=== PATIENT | male | born 1960 | race Hispanic/Latino ===

== ENCOUNTER 2021-06-25 23:23 | Emergency (ER) | payer MEDICAID ==
[2021-06-25] MEDS ORDERED: dilTIAZem 25 MG/5 ML INJ IV ONE (23:44)
--- NOTE | 2021-06-25 23:51 | Emergency Department Report ---
ED Chest Pain HPI - General Stated Complaint: CHEST PAIN PUI?: No Time Seen by Provider: 06/25/21 23:36 Source: patient, EMS Mode of arrival: Stretcher Limitations: Language Barrier - History of Present Illness Initial Comments: CC: chest pain, shortness of breath HPI: This is a 61 yo male with hx of HTN, CHF, inguinal hernia and polysubstance abuse who presents with chest pain and shortness of breath for 3 weeks. He has intermittent chest squeezing sensation. Has productive cough. Recently seen at outside hospital. He was diagnosed with a "very weak heart". He denies fever, chills, diarrhea, abdominal pain. He has constipation. He endorses tobacco use, daily alcohol use. He recently used cocaine and methamphetamine one week ago. Family history of stroke Heart disease cancer Patient arrived via EMS. EMS cardiac tracing revealed atrial fibrillation RVR. HR reported to be 120-170 bpm according to EMS. I reviewed EKG obtained per EMS my interpretation: Atrial fibrillation RVR ventricular rate 150 bpm right axis deviation no ST elevation nonspecific T wave pattern MD Complaint: chest pain -: Gradual, week(s) (3 weeks) Onset: during rest Pain Location: substernal Severity: moderate Severity scale (0 -10): 7 Quality: squeezing Consistency: intermittent Improves With: nothing Worsens With: nothing Context: recent illness (Recent diagnosis of "weak heart" at outside hospital) Other Symptoms: cough, other (Shortness of breath) Treatments Prior to Arrival: aspirin (324 mg of aspirin per EMS) - Related Data Allergies Allergy/AdvReac Type Severity Reaction Status Date / Time No Known Allergies Allergy Verified 06/26/21 00:16 Heart Score - HEART Score History: Moderately suspicious EKG: Non-specific Age: 45-65 Risk factors: 1-2 risk factors Troponin: < normal limit HEART Score: 4 - EKG Read Time Time EKG Completed: 23:56 EKG Read Time: 23:56 - Critical Actions Critical Actions: 4-6 pts:12-16.6% risk of adverse cardiac event. Should be admitted ED Review of Systems ROS: Stated complaint: CHEST PAIN Other details as noted in HPI Comment: All other systems reviewed and negative Constitutional: denies: fever, malaise Respiratory: cough, shortness of breath Cardiovascular: chest pain Gastrointestinal: constipation. denies: abdominal pain, nausea, vomiting, diarrhea Musculoskeletal: denies: back pain Neurological: denies: headache ED Past Medical Hx - Past Medical History Previous Medical History?: Yes Hx Hypertension: Yes Hx Congestive Heart Failure: Yes Additional medical history: Inguinal hernia - Family History Family history: CAD/[place], cancer, vascular disease, other (Family history of CVA) - Social History Smoking Status: Current Every Day Smoker Substance Use Type: Alcohol, Cocaine, Methamphetamines ED Physical Exam - General General appearance: alert, in no apparent distress, other (Disheveled in appearance otherwise cooperative no acute distress) - Head Head exam: Present: atraumatic, normocephalic - Eye Eye exam: Present: normal appearance - ENT ENT exam: Present: mucous membranes moist, other (Edentulous) - Neck Neck exam: Present: normal inspection, full ROM - Respiratory Respiratory exam: Present: normal lung sounds bilaterally. Absent: respiratory distress, wheezes, rales, rhonchi - Cardiovascular Cardiovascular Exam: Present: tachycardia, irregular rhythm, normal heart sounds. Absent: systolic murmur, diastolic murmur, rubs, gallop - GI/Abdominal GI/Abdominal exam: Present: soft, normal bowel sounds. Absent: distended, tenderness, guarding, rebound - Rectal Rectal exam: Present: deferred - Extremities Exam Extremities exam: Present: normal inspection - Neurological Exam Neurological exam: Present: alert, oriented X3 - Psychiatric Psychiatric exam: Present: normal affect, normal mood - Skin Skin exam: Present: warm, dry, intact, normal color. Absent: rash ED Course Vital Signs 06/26/21 06/26/21 06/26/21 00:11 00:14 00:22 Temperature 98.6 F Pulse Rate 133 H 147 H Respiratory 17 Rate Blood Pressure 122/89 Blood Pressure 122/89 [Left] O2 Sat by Pulse 98 99 Oximetry 06/26/21 01:42 Temperature Pulse Rate 115 H Respiratory 18 Rate Blood Pressure Blood Pressure 112/72 [Left] O2 Sat by Pulse 100 Oximetry - Reevaluation(s) Reevaluation #1: 06/26/21 01:04 Heart rate 106 to 111 bpm after first diltiazem bolus. Second diltiazem bolus and infusion ordered. ED Medical Decision Making - Lab Data Result diagrams: 06/25/21 23:45 06/25/21 23:45 Laboratory Results - last 24 hr 06/25/21 06/25/21 06/25/21 23:45 23:45 23:49 WBC 8.2 RBC 4.26 Hgb 13.0 Hct 40.0 MCV 94 MCH 31 MCHC 33 RDW 14.2 Plt Count 260 Lymph % (Auto) 23.0 [place] % (Auto) 6.8 Eos % (Auto) 4.1 Baso % (Auto) 1.2 Lymph # (Auto) 1.9 [place] # (Auto) 0.6 Eos # (Auto) 0.3 Baso # (Auto) 0.1 Seg Neutrophils % 64.9 Seg Neutrophils # 5.3 Sodium 138 Potassium 4.5 Chloride 100.4 Carbon Dioxide 27 Anion Gap 15 BUN 12 Creatinine 1.0 Estimated GFR > 60 BUN/Creatinine Ratio 12 Glucose 86 Calcium 8.6 Troponin T < 0.010 NT-Pro-B Natriuret Pep 3936 H - EKG Data -: EKG Interpreted by Me - EKG Data 06/26/21 00:03 EKG obtained 2356 EKG interpreted by me Atrial fibrillation rapid ventricular rate 145 bpm right axis deviation no ST elevation nonspecific T wave pattern - Radiology Data Radiology results: report reviewed Patient Name: LIBIA FLOWER Gender: Male Date of : 1960 Referring Provider: DARYN ARROYO Organization: [facility] Accession Number: [id number] Requested Date: June 25, 2021 23:36 Report Status: Final Requested Procedure: 1 Procedure Description: XR chest 1V ap Modality: XR Findings Reporting MD: Dominga Palacio Dictation Time: June 25, 2021 22:59 Cmm Technician: Not available Manager Office Date: CHEST 1 VIEW 06/25/2021 10:56 PM INDICATION / CLINICAL INFORMATION: Chest Pain. COMPARISON: None available. FINDINGS: SUPPORT DEVICES: None. HEART / MEDIASTINUM: Heart is mildly enlarged. LUNGS / PLEURA: Mild to moderate interstitial pulmonary edema. No pneumothorax. ADDITIONAL FINDINGS: No significant additional findings. IMPRESSION: 1. Mild cardiomegaly with pulmonary edema. Signer Name: Dominga Palacio MD Signed: 06/25/2021 10:59 PM Workstation Name: [email or web address] - Medical Decision Making 1. Acute coronary syndrome: Heart score 4 patient has had intermittent chest pain shortness of breath over the past 3 weeks. Chest pain resolved with rate control. First troponin negative. Patient received aspirin via EMS. 2. New onset atrial fibrillation with RVR: Patient rate controlled will diltiazem boluses and infusion. 3. Acute systolic heart failure: Patient is at risk for coronary artery disease however patient does have history of polysubstance abuse which would cause nonischemic cardiomyopathy. Patient given IV furosemide for diuresis. Patient has been normotensive. BNP elevated Ultimately Mr. Flower decided to leave AGAINST MEDICAL ADVICE. He did not want to be admitted to the hospital. He understands the risk of sudden or stroke. He understands the risk of worsening health. Patient does have decision-making capacity. I encouraged him to return to the ER for further treatment evaluation. I have referred Mr. Flower to wood cabinet finisher and general surgeon. Critical Care Time: Yes Critical care time in (mins) excluding proc time.: 40 Critical care attestation.: If time is entered above; I have spent that time in minutes in the direct care of this critically ill patient, excluding procedure time. 40 minutes of critical care time excluding procedures were used in the care of the patient. I came immediately to the bedside upon patient's arrival. I obtained history from EMS at the bedside. I discussed treatment plan with the nursing team members. I reviewed electronic record. I was concerned for arrhythmia leading to cardiovascular collapse. Patient required multiple interventions and reassessments. ED Disposition Clinical Impression: New onset atrial fibrillation, Atrial fibrillation with rapid ventricular response, Acute coronary syndrome, Acute systolic heart failure, Tobacco dependence, Polysubstance abuse Disposition: DC-07 LEFT AGAINST MED ADVICE Is pt being admited?: No Does the pt Need Aspirin: No Condition: Stable Instructions: Inguinal Hernia, Adult, [id number], Atrial Fibrillation, [id number] Referrals: JADIEL REBOLLAR MD [Staff Physician] - 3-5 Days JENNY DOUGHERTY DO [Staff Physician] - 3-5 Days Forms: AMA Form
--- NOTE | 2021-06-26 00:04 | XRay Report ---
CHEST 1 VIEW 06/25/2021 10:56 PM INDICATION / CLINICAL INFORMATION: Chest Pain. COMPARISON: None available. FINDINGS: SUPPORT DEVICES: None. HEART / MEDIASTINUM: Heart is mildly enlarged. LUNGS / PLEURA: Mild to moderate interstitial pulmonary edema. No pneumothorax. ADDITIONAL FINDINGS: No significant additional findings. IMPRESSION: 1. Mild cardiomegaly with pulmonary edema. Signer Name: Dominga Palacio MD Signed: 06/25/2021 11:59 PM Workstation Name: [id number]
[2021-06-26 00:44] LABS: Basophils # (Auto) 0.1 K/mm3 (0.0-0.1); Basophils % (Auto) 1.2 % (0.0-1.8); Eosinophils # (Auto) 0.3 K/mm3 (0.0-0.4); Eosinophils % (Auto) 4.1 % (0.0-4.3); Lymphocytes # (Auto) 1.9 K/mm3 (1.2-5.4); Mean Corpuscular HGB Conc 33 % (32-34); Mean Corpuscular Volume 94 fl (84-94); Monocytes # (Auto) 0.6 K/mm3 (0.0-0.8); Monocytes % (Auto) 6.8 % (0.0-7.3); Platelet Count 260 K/mm3 (140-440); Red Blood Count 4.26 M/mm3 (3.65-5.03); Red Cell Distribution Width 14.2 % (13.2-15.2)
[2021-06-26 00:52] LABS: BUN/Creatinine Ratio 12; Blood Urea Nitrogen 12 mg/dL (9-20); Calcium 8.6 mg/dL (8.4-10.2); Hemolysis Index 4
[2021-06-26] MEDS ORDERED: dilTIAZem 25 MG/5 ML INJ IV ONE (01:09)
[2021-06-26 01:42] VITALS: BP 112/72
[2021-06-26] MEDS ORDERED: dilTIAZem/D5W 100 MG/100 ML BAG IV SCH (02:00)
--- NOTE | 2021-06-28 10:36 | Electrocardiograph Report ---
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
== END 2021-06-26 01:58 | disposition left against medical advice (07) ==
LOC: ED 23:23
DX: I49.01 Ventricular fibrillation (principal); I24.9 Acute ischemic heart disease, unspecified; I50.21 Acute systolic (congestive) heart failure; F17.200 Nicotine dependence, unspecified, uncomplicated; F19.10 Other psychoactive substance abuse, uncomplicated; I11.0 Hypertensive heart disease with heart failure; I50.9 Heart failure, unspecified
CPT/HCPCS: 36415; 71045; 80048; 83880; 84484; 85025; 93005; 96374; 99284

== ENCOUNTER 2021-07-07 19:01 | Emergency (ER) | payer MEDICAID ==
[2021-07-07] MEDS ORDERED: ASPIRIN 325 MG TAB PO ONE (19:43)
[2021-07-07] MEDS ORDERED: dilTIAZem 25 MG/5 ML INJ IV ONE ×2 (20:06→20:24)
--- NOTE | 2021-07-07 20:09 | XRay Report ---
CHEST 1 VIEW INDICATION: chest pain. COMPARISON: 06/25/2021 FINDINGS: Support devices: None. Heart: Enlarged, unchanged. Lungs/Pleura: Retrocardiac opacity is likely atelectatic given the enlarged cardiac silhouette. Lungs otherwise clear. No significant effusion, no pneumothorax. IMPRESSION: 1. No acute findings. Presumed atelectasis in the retrocardiac left lung base. Signer Name: Stiven Mcleod MD Signed: 07/07/2021 8:05 PM Workstation Name: [id number]
[2021-07-07 20:30] LABS: Basophils # (Auto) 0.1 K/mm3 (0.0-0.1); Basophils % (Auto) 1.2 % (0.0-1.8); Eosinophils # (Auto) 0.3 K/mm3 (0.0-0.4); Eosinophils % (Auto) 3.3 % (0.0-4.3); Hematocrit 38.1 % (35.5-45.6); Hemoglobin 12.7 gm/dl (11.8-15.2); Lymphocytes # (Auto) 1.8 K/mm3 (1.2-5.4); Lymphocytes % (Auto) 23.4 % (13.4-35.0); Mean Corpuscular HGB Conc 33 % (32-34); Mean Corpuscular Volume 93 fl (84-94); Monocytes # (Auto) 0.6 K/mm3 (0.0-0.8); Monocytes % (Auto) 8.1 % (0.0-7.3); Platelet Count 223 K/mm3 (140-440); Red Cell Distribution Width 14.1 % (13.2-15.2)
[2021-07-07 20:50] LABS: Alanine Aminotransferase 10 units/L (7-56); Albumin 3.3 g/dL (3.9-5); Blood Urea Nitrogen 14 mg/dL (9-20); Calcium 9.1 mg/dL (8.4-10.2); Hemolysis Index 9
[2021-07-07 20:57] LABS: BUN/Creatinine Ratio 20
[2021-07-07] MEDS ORDERED: METOPROLOL TARTRATE 5 MG/5 ML INJ IV ONE (21:55)
--- NOTE | 2021-07-07 21:55 | Emergency Department Report ---
ED General Adult HPI - General Chief complaint: Chest Pain Stated complaint: CHEST PAIN Time Seen by Provider: 07/07/21 19:30 Source: patient, EMS Mode of arrival: Stretcher Limitations: No Limitations - History of Present Illness Initial comments: The patient presents to the emergency department with a chief complaint of chest pain has been present for the last couple of days. Patient scribes the chest pain is pressure-like in nature. Patient also complains of shortness of breath or heart palpitations. Patient denies have any history of atrial fibrillation. Patient states when he was in longterm he used to take medications for his heart but has not taken medication since leaving longterm. Patient denies abdominal pain or headache. -: unknown Location: chest Radiation: non-radiation Severity scale (0 -10): 5 Quality: dull Consistency: constant Improves with: none Worsens with: none Associated Symptoms: denies other symptoms Treatments Prior to Arrival: none - Related Data Allergies Allergy/AdvReac Type Severity Reaction Status Date / Time No Known Allergies Allergy Verified 07/07/21 19:39 ED Review of Systems ROS: Stated complaint: CHEST PAIN Other details as noted in HPI Comment: All other systems reviewed and negative Constitutional: denies: chills, fever Eyes: denies: eye pain, eye discharge, vision change ENT: denies: ear pain, throat pain Respiratory: denies: cough, shortness of breath, wheezing Cardiovascular: chest pain. denies: palpitations Endocrine: no symptoms reported Gastrointestinal: denies: abdominal pain, nausea, diarrhea Genitourinary: denies: urgency, dysuria Musculoskeletal: denies: back pain, joint swelling, arthralgia Skin: denies: rash, lesions Neurological: denies: headache, weakness, paresthesias Psychiatric: denies: anxiety, depression Hematological/Lymphatic: denies: easy bleeding, easy bruising ED Past Medical Hx - Past Medical History Previous Medical History?: Yes Hx Hypertension: Yes Hx Congestive Heart Failure: Yes Additional medical history: AFIB, High cholesterol, Inguinal hernia - Surgical History Past Surgical History?: No - Social History Smoking Status: Current Every Day Smoker Substance Use Type: Alcohol ED Physical Exam - General Limitations: No Limitations General appearance: alert, in no apparent distress - Head Head exam: Present: atraumatic, normocephalic - Eye Eye exam: Present: normal appearance, PERRL, EOMI - ENT ENT exam: Present: mucous membranes moist - Neck Neck exam: Present: normal inspection - Respiratory Respiratory exam: Present: normal lung sounds bilaterally. Absent: respiratory distress - Cardiovascular Cardiovascular Exam: Present: normal rhythm, tachycardia, irregular rhythm. Absent: systolic murmur, diastolic murmur, rubs, gallop - GI/Abdominal GI/Abdominal exam: Present: soft, normal bowel sounds. Absent: distended, tenderness - Rectal Rectal exam: Present: deferred - Extremities Exam Extremities exam: Present: normal inspection - Back Exam Back exam: Present: normal inspection - Neurological Exam Neurological exam: Present: alert, oriented X3, CN II-XII intact. Absent: motor sensory deficit - Psychiatric Psychiatric exam: Present: normal affect, normal mood - Skin Skin exam: Present: warm, dry, intact, normal color. Absent: rash ED Course Vital Signs 07/07/21 07/07/21 07/07/21 19:30 19:45 20:01 Temperature 98.1 F Pulse Rate 139 H 127 H 150 H Respiratory 18 21 23 Rate Blood Pressure 124/94 118/95 Blood Pressure 116/96 [Left] O2 Sat by Pulse 100 100 99 Oximetry 07/07/21 07/07/21 07/07/21 20:14 20:15 20:28 Temperature Pulse Rate 135 H 135 H 126 H Respiratory 21 Rate Blood Pressure 112/83 112/83 110/87 Blood Pressure [Left] O2 Sat by Pulse 100 Oximetry 07/07/21 07/07/21 07/07/21 20:31 20:45 21:01 Temperature Pulse Rate 119 H 100 H 111 H Respiratory 23 23 19 Rate Blood Pressure 110/87 111/77 Blood Pressure [Left] O2 Sat by Pulse 99 98 97 Oximetry 07/07/21 07/07/21 07/07/21 21:15 21:31 21:45 Temperature Pulse Rate 109 H 115 H 140 H Respiratory 18 20 21 Rate Blood Pressure 96/70 99/68 102/78 Blood Pressure [Left] O2 Sat by Pulse 95 96 97 Oximetry 07/07/21 07/07/21 07/07/21 22:01 22:15 22:16 Temperature Pulse Rate 123 H 120 H 127 H Respiratory 26 H 19 Rate Blood Pressure 111/81 120/78 120/78 Blood Pressure [Left] O2 Sat by Pulse 96 97 Oximetry 07/07/21 22:31 Temperature Pulse Rate 111 H Respiratory 20 Rate Blood Pressure 117/89 Blood Pressure [Left] O2 Sat by Pulse Oximetry ED Medical Decision Making - Lab Data Result diagrams: 07/07/21 19:51 07/07/21 19:51 Lab Results 07/07/21 07/07/21 07/07/21 Range/Units 19:51 19:51 20:16 WBC 7.5 (4.5-11.0) K/mm3 RBC 4.10 (3.65-5.03) M/mm3 Hgb 12.7 (11.8-15.2) gm/dl Hct 38.1 (35.5-45.6) % MCV 93 (84-94) fl MCH 31 (28-32) pg MCHC 33 (32-34) % RDW 14.1 (13.2-15.2) % Plt Count 223 (140-440) K/mm3 Lymph % (Auto) 23.4 (13.4-35.0) % [place] % (Auto) 8.1 H (0.0-7.3) % Eos % (Auto) 3.3 (0.0-4.3) % Baso % (Auto) 1.2 (0.0-1.8) % Lymph # (Auto) 1.8 (1.2-5.4) K/mm3 [place] # (Auto) 0.6 (0.0-0.8) K/mm3 Eos # (Auto) 0.3 (0.0-0.4) K/mm3 Baso # (Auto) 0.1 (0.0-0.1) K/mm3 Seg Neutrophils % 64.0 (40.0-70.0) % Seg Neutrophils # 4.8 (1.8-7.7) K/mm3 Sodium 138 (137-145) mmol/L Potassium 4.4 (3.6-5.0) mmol/L Chloride 102.2 (98-107) mmol/L Carbon Dioxide 26 (22-30) mmol/L Anion Gap 14 mmol/L BUN 14 (9-20) mg/dL Creatinine 0.7 L (0.8-1.3) mg/dL Estimated GFR > 60 ml/min BUN/Creatinine Ratio 20 % Glucose 90 (75-100) mg/dL Calcium 9.1 (8.4-10.2) mg/dL Magnesium (1.7-2.3) mg/dL Total Bilirubin 0.50 (0.1-1.2) mg/dL AST 15 (5-40) units/L ALT 10 (7-56) units/L Alkaline Phosphatase 79 (35-129) units/L Troponin T < 0.010 (0.00-0.029) ng/mL NT-Pro-B Natriuret Pep 4093 H (0-900) pg/mL Total Protein 6.2 L (6.3-8.2) g/dL Albumin 3.3 L (3.9-5) g/dL Albumin/Globulin Ratio 1.1 % 07/07/21 Range/Units 20:32 WBC (4.5-11.0) K/mm3 RBC (3.65-5.03) M/mm3 Hgb (11.8-15.2) gm/dl Hct (35.5-45.6) % MCV (84-94) fl MCH (28-32) pg MCHC (32-34) % RDW (13.2-15.2) % Plt Count (140-440) K/mm3 Lymph % (Auto) (13.4-35.0) % [place] % (Auto) (0.0-7.3) % Eos % (Auto) (0.0-4.3) % Baso % (Auto) (0.0-1.8) % Lymph # (Auto) (1.2-5.4) K/mm3 [place] # (Auto) (0.0-0.8) K/mm3 Eos # (Auto) (0.0-0.4) K/mm3 Baso # (Auto) (0.0-0.1) K/mm3 Seg Neutrophils % (40.0-70.0) % Seg Neutrophils # (1.8-7.7) K/mm3 Sodium (137-145) mmol/L Potassium (3.6-5.0) mmol/L Chloride (98-107) mmol/L Carbon Dioxide (22-30) mmol/L Anion Gap mmol/L BUN (9-20) mg/dL Creatinine (0.8-1.3) mg/dL Estimated GFR ml/min BUN/Creatinine Ratio % Glucose (75-100) mg/dL Calcium (8.4-10.2) mg/dL Magnesium 1.90 (1.7-2.3) mg/dL Total Bilirubin (0.1-1.2) mg/dL AST (5-40) units/L ALT (7-56) units/L Alkaline Phosphatase (35-129) units/L Troponin T (0.00-0.029) ng/mL NT-Pro-B Natriuret Pep (0-900) pg/mL Total Protein (6.3-8.2) g/dL Albumin (3.9-5) g/dL Albumin/Globulin Ratio % - EKG Data -: EKG Interpreted by Me Rate: tachycardia - EKG Data Interpretation: other (Irregularly irregular) - Radiology Data Radiology results: report reviewed - Medical Decision Making The patient was given 10 mg IV of Cardizem to to no avail this was repeated x1 with his heart rate stand at approximate 120 bpm. Patient was given 5 mg Lopressor with his heart rate decreased to 92 Instructed the patient the need for him to be admitted to the hospital for his new onset A. fib chest pain and the patient adamantly refused stating he was leaving. Discussed with the patient that this could lead to , severe illness, stroke due to his abnormal heart rhythm but the patient stated he was given the F out of here. Patient left AMA without signing paperwork. Critical Care Time: Yes Critical care time in (mins) excluding proc time.: 35 Critical care attestation.: If time is entered above; I have spent that time in minutes in the direct care of this critically ill patient, excluding procedure time. ED Disposition Clinical Impression: A-fib, Chest pain Disposition: DC-07 LEFT AGAINST MED ADVICE Is pt being admited?: No Condition: Stable Instructions: Nonspecific Chest Pain, Adult, Atrial Fibrillation Additional Instructions: Return if worse Referrals: PRIMARY CAREMD [Primary Care Provider] - 3-5 Days SAMMIE SCHUMACHER MD [Staff Physician] - 3-5 Days Forms: AMA Form
[2021-07-07 22:50] VITALS: BP 117/89
--- NOTE | 2021-07-09 09:14 | Electrocardiograph Report ---
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
== END 2021-07-07 22:35 | disposition home or self-care (01) ==
LOC: ED 19:01
DX: I48.91 Unspecified atrial fibrillation (principal); R07.9 Chest pain, unspecified; I11.0 Hypertensive heart disease with heart failure; I50.9 Heart failure, unspecified; E78.00 Pure hypercholesterolemia, unspecified; F17.200 Nicotine dependence, unspecified, uncomplicated; Z79.899 Other long term (current) drug therapy
CPT/HCPCS: 36415; 71045; 80053; 83735; 83880; 84484; 85025; 93005; 96374; 96375

== ENCOUNTER 2021-10-07 16:09 | Emergency (ER) | payer MEDICAID ==
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
[2021-10-07] MEDS ORDERED: LORazepam 2 MG/ML VIAL IV ONE ×3 (17:25→23:14)
[2021-10-07 17:28] LABS: Bilirubin,Urine NEG (Negative); Blood,Urine NEG (Negative); Color,Urine Yellow (Yellow); Mucus,Urine FEW /HPF; Protein,Urine <15 mg/dL mg/dL (Negative); Urobilinogen,Urine < 2.0 mg/dL (<2.0)
[2021-10-07 17:35] LABS: Amphetamine Screen,Urine Negative; Benzodiazepines Screen,Urine Negative; Cannabinoid Screen,Urine Negative; Cocaine Screen,Urine Negative; Methadone Screen,Urine Negative; Opiate Screen,Urine Negative
[2021-10-07 17:38] LABS: Basophils # (Auto) 0.1 K/mm3 (0.0-0.1); Basophils % (Auto) 1.5 % (0.0-1.8); Eosinophils # (Auto) 0.2 K/mm3 (0.0-0.4); Eosinophils % (Auto) 2.9 % (0.0-4.3); Hematocrit 44.6 % (35.5-45.6); Hemoglobin 14.7 gm/dl (11.8-15.2); Lymphocytes # (Auto) 2.5 K/mm3 (1.2-5.4); Lymphocytes % (Auto) 40.1 % (13.4-35.0); Mean Corpuscular HGB Conc 33 % (32-34); Mean Corpuscular Volume 92 fl (84-94); Monocytes # (Auto) 0.5 K/mm3 (0.0-0.8); Monocytes % (Auto) 7.7 % (0.0-7.3); Platelet Count 302 K/mm3 (140-440); Red Blood Count 4.85 M/mm3 (3.65-5.03); Red Cell Distribution Width 19.9 % (13.2-15.2)
[2021-10-07 17:42] LABS: Alanine Aminotransferase 21 units/L (7-56); Blood Urea Nitrogen 13 mg/dL (9-20); Calcium 8.9 mg/dL (8.4-10.2); Hemolysis Index 25
[2021-10-07 17:43] LABS: BUN/Creatinine Ratio 22
[2021-10-07 17:58] LABS: INR 0.88 (0.87-1.13)
[2021-10-07 17:59] LABS: Partial Thromboplastin Time 28.3 Sec. (24.2-36.6)
[2021-10-07] MEDS ORDERED: diphenhydrAMINE 50 MG/ML VIAL IV ONE (22:18)
[2021-10-07] MEDS ORDERED: HALOPERIDOL LACTATE 5 MG/1 ML INJ IV ONE (22:19)
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
[2021-10-08 05:07] VITALS: BP 137/92
== END 2021-10-08 06:20 | disposition home or self-care (01) ==
LOC: ED 16:09
DX: S00.81XA Abrasion of other part of head, initial encounter (principal); F10.129 Alcohol abuse with intoxication, unspecified; I11.0 Hypertensive heart disease with heart failure; I50.9 Heart failure, unspecified; E78.00 Pure hypercholesterolemia, unspecified; F17.200 Nicotine dependence, unspecified, uncomplicated; Z79.899 Other long term (current) drug therapy; Y04.8XXA Assault by other bodily force, initial encounter; Y93.89 Activity, other specified; Y92.89 Other specified places as the place of occurrence of the external cause; Y99.8 Other external cause status; Y90.9 Presence of alcohol in blood, level not specified
CPT/HCPCS: 36415; 70450; 80053; 80307; 81001; 85025; 85610; 85730; 96374; 96375; 96376; 99285; J1200; J1630; J2060; 80320; G0480

== ENCOUNTER 2022-03-19 14:09 | Emergency (ER) | payer MEDICAID ==
[2022-03-19] MEDS ORDERED: THIAMINE 100 MG, FOLIC ACID 1 MG, MULTIPLE VITAMIN INJ, ADULT 10 ML in SODIUM CHLORIDE ... IV ONE (16:05)
--- NOTE | 2022-03-19 16:08 | Emergency Department Report ---
ED Alcohol HPI - General Chief Complaint: Alcohol Stated Complaint: ALCOHOL Time Seen by Provider: 03/19/22 15:50 Source: patient, family Mode of arrival: Ambulatory Limitations: No Limitations - History of Present Illness Initial Comments: 62-year-old male with a past medical history of CHF, hypertension, atrial fibrillation, and alcohol abuse presents to the hospital acutely intoxicated requesting alcohol detox. Patient is drowsy but arousable and obviously intoxicated with slurred speech. He does endorse a history of alcohol withdrawal tremors but denies history of alcohol withdrawal seizures. Last drink was prior to arrival - Related Data Allergies Allergy/AdvReac Type Severity Reaction Status Date / Time No Known Allergies Allergy Verified 03/19/22 16:40 ED Review of Systems ROS: Stated complaint: ALCOHOL Other details as noted in HPI Comment: All other systems reviewed and negative ED Past Medical Hx - Past Medical History Previous Medical History?: Yes Hx Hypertension: Yes Hx Congestive Heart Failure: Yes Additional medical history: AFIB, High cholesterol, Inguinal hernia, Alcohol abuse - Surgical History Past Surgical History?: No - Social History Smoking Status: Current Every Day Smoker Substance Use Type: Alcohol ED Physical Exam - General Limitations: No Limitations - Other Other exam information: General: No acute distress Head: Atraumatic Eyes: normal appearance ENT: Moist mucous membranes Neck: Normal appearance, no midline tenderness Chest: Clear to auscultation bilaterally CV: Mild tachycardia irregular rate Abdomen: Soft, normal bowel sounds, nontender, nondistended, no rebound or guarding Back: Normal inspection Extremity: Normal inspection, full range of motion Neuro: Lethargic, acute intoxication, mild slurred speech, 5/5 upper lower ex tremity strength, sensation grossly intact Skin: No rash ED Course Vital Signs 03/19/22 03/19/22 14:33 16:41 Temperature 98.5 F 98.3 F Pulse Rate 106 H 110 H Respiratory 19 18 Rate Blood Pressure 134/91 134/113 [Right] O2 Sat by Pulse 96 98 Oximetry ED Medical Decision Making - Lab Data Result diagrams: 03/19/22 16:47 03/19/22 16:47 Lab Results 03/19/22 03/19/22 03/19/22 Range/Units 16:47 16:47 16:47 WBC 4.1 L (4.5-11.0) K/mm3 RBC 4.55 (3.65-5.03) M/mm3 Hgb 15.4 H (11.8-15.2) gm/dl Hct 44.6 (35.5-45.6) % MCV 98 H (84-94) fl MCH 34 H (28-32) pg MCHC 35 H (32-34) % RDW 15.3 H (13.2-15.2) % Plt Count 164 (140-440) K/mm3 Lymph % (Auto) 41.8 H (13.4-35.0) % [place] % (Auto) 9.3 H (0.0-7.3) % Eos % (Auto) 1.8 (0.0-4.3) % Baso % (Auto) 1.2 (0.0-1.8) % Lymph # (Auto) 1.7 (1.2-5.4) K/mm3 [place] # (Auto) 0.4 (0.0-0.8) K/mm3 Eos # (Auto) 0.1 (0.0-0.4) K/mm3 Baso # (Auto) 0.1 (0.0-0.1) K/mm3 Seg Neutrophils % 45.9 (40.0-70.0) % Seg Neutrophils # 1.9 (1.8-7.7) K/mm3 PT (12.2-14.9) Sec. INR (0.87-1.13) APTT (24.2-36.6) Sec. Sodium 142 (137-145) mmol/L Potassium 3.9 (3.6-5.0) mmol/L Chloride 103.9 (98-107) mmol/L Carbon Dioxide 21 L (22-30) mmol/L Anion Gap 21 mmol/L BUN 14 (9-20) mg/dL Creatinine 0.7 L (0.8-1.3) mg/dL Estimated GFR > 60 ml/min BUN/Creatinine Ratio 20 % Glucose 89 (75-100) mg/dL Calcium 9.0 (8.4-10.2) mg/dL Magnesium 1.90 (1.7-2.3) mg/dL Total Bilirubin 0.50 (0.1-1.2) mg/dL AST 198 H (5-40) units/L ALT 122 H (7-56) units/L Alkaline Phosphatase 90 (35-129) units/L Total Protein 6.5 (6.3-8.2) g/dL Albumin 4.1 (3.9-5) g/dL Albumin/Globulin Ratio 1.7 % Salicylates < 0.3 L (2.8-20.0) mg/dL Acetaminophen (10.0-30.0) ug/mL Plasma/Serum Alcohol (0-0.07) % 03/19/22 03/19/22 03/19/22 Range/Units 16:47 16:47 16:47 WBC (4.5-11.0) K/mm3 RBC (3.65-5.03) M/mm3 Hgb (11.8-15.2) gm/dl Hct (35.5-45.6) % MCV (84-94) fl MCH (28-32) pg MCHC (32-34) % RDW (13.2-15.2) % Plt Count (140-440) K/mm3 Lymph % (Auto) (13.4-35.0) % [place] % (Auto) (0.0-7.3) % Eos % (Auto) (0.0-4.3) % Baso % (Auto) (0.0-1.8) % Lymph # (Auto) (1.2-5.4) K/mm3 [place] # (Auto) (0.0-0.8) K/mm3 Eos # (Auto) (0.0-0.4) K/mm3 Baso # (Auto) (0.0-0.1) K/mm3 Seg Neutrophils % (40.0-70.0) % Seg Neutrophils # (1.8-7.7) K/mm3 PT 13.0 (12.2-14.9) Sec. INR 0.89 (0.87-1.13) APTT 29.1 (24.2-36.6) Sec. Sodium (137-145) mmol/L Potassium (3.6-5.0) mmol/L Chloride (98-107) mmol/L Carbon Dioxide (22-30) mmol/L Anion Gap mmol/L BUN (9-20) mg/dL Creatinine (0.8-1.3) mg/dL Estimated GFR ml/min BUN/Creatinine Ratio % Glucose (75-100) mg/dL Calcium (8.4-10.2) mg/dL Magnesium (1.7-2.3) mg/dL Total Bilirubin (0.1-1.2) mg/dL AST (5-40) units/L ALT (7-56) units/L Alkaline Phosphatase (35-129) units/L Total Protein (6.3-8.2) g/dL Albumin (3.9-5) g/dL Albumin/Globulin Ratio % Salicylates (2.8-20.0) mg/dL Acetaminophen 5.0 L (10.0-30.0) ug/mL Plasma/Serum Alcohol 0.37 H (0-0.07) % - EKG Data -: EKG Interpreted by Me (afib) EKG shows normal: ST-T waves (no stemi) Rate: tachycardia (107) - Medical Decision Making pt with acute alcohol intoxication who presents to the ER requesting alcohol detox but has been resistant to ED treatment and evaluation. I informed nurse that he cannot leave the department due to acute intoxication illness someone was coming to pick him up. I was informed by nurse that patient left the ED department. Patient is also noted to have chronic A. fib with chronic medication noncompliance. Critical Care Time: No Critical care attestation.: If time is entered above; I have spent that time in minutes in the direct care of this critically ill patient, excluding procedure time. ED Disposition Clinical Impression: Acute alcohol intoxication, Alcohol abuse, Chronic atrial fibrillation, Noncompliance with medication regimen Disposition: 07 LEFT AWOL/ELOPED Is pt being admited?: No Does the pt Need Aspirin: No Condition: Stable Time of Disposition: 18:31
[2022-03-19 16:57] VITALS: BP 134/113
[2022-03-19 17:06] LABS: Basophils # (Auto) 0.1 K/mm3 (0.0-0.1); Basophils % (Auto) 1.2 % (0.0-1.8); Eosinophils # (Auto) 0.1 K/mm3 (0.0-0.4); Eosinophils % (Auto) 1.8 % (0.0-4.3); Hematocrit 44.6 % (35.5-45.6); Hemoglobin 15.4 gm/dl (11.8-15.2); Lymphocytes # (Auto) 1.7 K/mm3 (1.2-5.4); Lymphocytes % (Auto) 41.8 % (13.4-35.0); Mean Corpuscular HGB Conc 35 % (32-34); Mean Corpuscular Volume 98 fl (84-94); Monocytes # (Auto) 0.4 K/mm3 (0.0-0.8); Monocytes % (Auto) 9.3 % (0.0-7.3); Platelet Count 164 K/mm3 (140-440); Red Blood Count 4.55 M/mm3 (3.65-5.03); Red Cell Distribution Width 15.3 % (13.2-15.2)
[2022-03-19 17:16] LABS: INR 0.89 (0.87-1.13)
[2022-03-19 17:17] LABS: Partial Thromboplastin Time 29.1 Sec. (24.2-36.6)
[2022-03-19 17:26] LABS: Alanine Aminotransferase 122 units/L (7-56); Albumin 4.1 g/dL (3.9-5); Blood Urea Nitrogen 14 mg/dL (9-20); Hemolysis Index 6
[2022-03-19 17:38] LABS: BUN/Creatinine Ratio 20
--- NOTE | 2022-03-20 10:45 | Electrocardiograph Report ---
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
== END 2022-03-20 07:00 | disposition left against medical advice (07) ==
LOC: ED 14:09
DX: F10.129 Alcohol abuse with intoxication, unspecified (principal); F10.10 Alcohol abuse, uncomplicated; I48.20 Chronic atrial fibrillation, unspecified; Z91.14 Patient's other noncompliance with medication regimen; I10 Essential (primary) hypertension; F17.200 Nicotine dependence, unspecified, uncomplicated
CPT/HCPCS: 36415; 80053; 83735; 85025; 85610; 85730; 93005; 96365; 96366; 99283; J3411; J3490; J7030; 80320; G0480